=== PATIENT | female | born 1980 | race Caucasian/White ===

== ENCOUNTER 2019-04-12 09:17 | Inpatient (IN) | payer OTHER ==
[~2019-04-12] VITALS: Ht 172.7 cm; Wt 181.4 kg
[~2019-04-12 09:17] MED LIST: AMOX500
[2019-04-12 11:42] LABS: BASOPHILS ABSOLUTE AUTO 0.07 K/mm3 (0.00-0.23); BASOPHILS PERCENT AUTO 0 % (0-2); EOSINOPHILS PERCENT AUTO 0 % (0-6); Hematocrit 31.9 % (33.0-51.0); Hemoglobin 7.7 g/dL (11.5-16.0); IMMATURE GRAN ABSOLUTE AUTO 0.32 K/mm3 (0.00-0.10); IMMATURE GRAN PERCENT AUTO 1 % (0-1); LYMPHOCYTES ABSOLUTE AUTO 2.42 K/mm3 (0.84-5.20); LYMPHOCYTES PERCENT AUTO 8 % (21-46); MONOCYTES ABSOLUTE AUTO 2.61 K/mm3 (0.16-1.47); MONOCYTES PERCENT AUTO 8 % (4-13); Mean Corpuscular HGB 15.5 pg (26.0-34.0); Mean Corpuscular HGB Conc 24.1 g/dL (31.5-36.5); Mean Corpuscular Volume 64 fL (80-100); Mean Platelet Volume 9.2 fL (9.1-12.4); NEUTROPHILS ABSOLUTE AUTO 25.89 K/mm3 (1.96-9.15); NEUTROPHILS PERCENT AUTO 83 % (41-73); NRBC ABSOLUTE 0.06 K/mm3 (0.00-0.02); NRBC Auto 0.2 /100 WBC (0.0-0.2); Platelet Count 446 K/mm3 (150-400); RDW Standard Deviation 46.5 fL (35.1-46.3); Red Blood Cell Count 4.98 M/mm3 (3.80-5.20); White Blood Cell Count 31.31 K/mm3 (4.00-11.30)
[2019-04-12 12:01] LABS: International Normalized Ratio 1.21; Prothrombin Time Results 12.8 Sec (9.7-11.5)
[2019-04-12 12:06] LABS: Alanine Aminotransfer (ALT/SGP 48 U/L (12-78); Albumin/Globulin Ratio 0.7 (0.8-1.8); Alk Phos 116 U/L (50-136); Anion Gap 10 mmol/L (6-16); Aspartate Aminotrans (AST/SGOT 39 U/L (12-37); Bilirubin, Total 1.3 mg/dL (0.1-1.0); Blood Urea Nitrogen 10 mg/dL (8-24); Bun/Creatinine Ratio 13.9 (12.0-20.0); CO2, Blood 23 mmol/L (21-32); Calcium, Blood 8.9 mg/dL (8.5-10.1); Chloride, Blood 99 mmol/L (98-108); Creatinine, Blood 0.72 mg/dL (0.40-1.00); Globulin, Blood 4.2 g/dL (2.2-4.0); Glomerular Filtration Rate >60 (60-); Glucose, Blood 286 mg/dL (70-99); Potassium, Blood 3.9 mmol/L (3.5-5.5); Sodium, Blood 132 mmol/L (136-145); Total Protein, Blood 7.2 g/dL (6.4-8.2)
[2019-04-12 12:43] LABS: Source, Urine Catheter
[2019-04-12 12:52] LABS: Bilirubin, Urine Neg (Neg); Blood, Urine 5+ (Neg); Glucose Qualitative, Urine 2+ (Neg); Ketones, Urine 3+ (Neg); Leukocyte Esterase, Urine 3+ (Neg); Nitrite, Urine Pos (Neg); Protein, Urine 3+ (Neg); Urobilinogen, Urine NORM (Normal); pH, Urine 6.5 (5.0-8.0)
[2019-04-12 13:06] LABS: Appearance, Urine Cloudy (Clear); Color, Urine Yellow (P-Yellow)
[2019-04-12 13:08] LABS: Bacteria Many /hpf; Red Blood Cells, Urine 25-50 /hpf (0-2); Squamous Epithelial Cells Few /hpf (Few); White Blood Cells, Urine 50-100 /hpf (0-5)
[2019-04-12 14:31] LABS: Percent Saturation 4.8 % (15.0-50.0)
--- NOTE | 2019-04-13 03:24 | NUR ---
SUMMARY PT HAD NO ISSUES NOTED. PT CONTINUED TO HAVE ELEVATED PULSE T/O SHIFT. PT HAS HAD DIFFICULTY SLEEPING. PT IS EAGER TO GO HOME. NO FEVERS NOTED. PT CURRENTLY AWAKE RESTING AND IN NO DISTRESS. CALL LIGHT IN REACH
[2019-04-13 05:24] LABS: BASOPHILS ABSOLUTE AUTO 0.08 K/mm3 (0.00-0.23); BASOPHILS PERCENT AUTO 0 % (0-2); EOSINOPHILS ABSOLUTE AUTO 0.02 K/mm3 (0.00-0.68); EOSINOPHILS PERCENT AUTO 0 % (0-6); Hemoglobin 7.3 g/dL (11.5-16.0); IMMATURE GRAN ABSOLUTE AUTO 0.35 K/mm3 (0.00-0.10); IMMATURE GRAN PERCENT AUTO 1 % (0-1); LYMPHOCYTES ABSOLUTE AUTO 2.12 K/mm3 (0.84-5.20); LYMPHOCYTES PERCENT AUTO 8 % (21-46); MONOCYTES ABSOLUTE AUTO 2.29 K/mm3 (0.16-1.47); MONOCYTES PERCENT AUTO 8 % (4-13); Mean Corpuscular HGB 15.5 pg (26.0-34.0); Mean Corpuscular HGB Conc 24.3 g/dL (31.5-36.5); Mean Corpuscular Volume 64 fL (80-100); Mean Platelet Volume 9.8 fL (9.1-12.4); NEUTROPHILS ABSOLUTE AUTO 22.61 K/mm3 (1.96-9.15); NEUTROPHILS PERCENT AUTO 82 % (41-73); Platelet Count 434 K/mm3 (150-400); RDW Coefficient Variation 20.5 % (11.7-14.2); RDW Standard Deviation 45.9 fL (35.1-46.3); Red Blood Cell Count 4.71 M/mm3 (3.80-5.20); White Blood Cell Count 27.47 K/mm3 (4.00-11.30)
[2019-04-13 06:04] LABS: Anion Gap 10 mmol/L (6-16); Blood Urea Nitrogen 14 mg/dL (8-24); Bun/Creatinine Ratio 15.5 (12.0-20.0); CO2, Blood 22 mmol/L (21-32); Calcium, Blood 8.5 mg/dL (8.5-10.1); Chloride, Blood 101 mmol/L (98-108); Glomerular Filtration Rate >60 (60-); Glucose, Blood 257 mg/dL (70-99); Potassium, Blood 3.7 mmol/L (3.5-5.5); Sodium, Blood 133 mmol/L (136-145)
--- NOTE | 2019-04-13 16:03 | NUR ---
SHIFT SUMMARY PT IS A/O X 4 AND HAS NO C/O PAIN. IV FLUIDS/ABO HAVE INFUSED ORDERED WITH NO ISSUE. STOOL SAMPLE IS PENDING BM. PT HAS BEEN UP TO RECLINER SLEEPING ON AND OFF THROUGHOUT THE DAY. LAB RESULTS WERE CALLED TO DR SAUCEDA THIS MORNING AND NO NEW ORDERS WERE GIVEN. PT IS ABLE TO MAKE HER NEEDS KNOWN AND CALLS FOR HELP WHEN NEEDED.
--- NOTE | 2019-04-13 22:38 | NUR ---
CALLED SINGLE WIRE SAW OPERATOR I DID INFORM HER THAT THE SECOND BAG OF IV FLUIDS WAS NOT ADMINISTERED. I DID ALSO INFORM HER THAT THIS PT HAS BEEN RUNNING HYPERTENSIVE AND TACHYCARDIC SINCE ADMIT. SINGLE WIRE SAW OPERATOR INSTRUCTED ME TO HOLD THE IV FLUID AND PASS THE VITALS INFORMATION ALONG TO DAY SHIFT.
[2019-04-14 03:53] LABS: Stool Occult Blood Guaiac 1 Neg (Neg)
--- NOTE | 2019-04-14 05:13 | NUR ---
SHIFT SUMMARY ADMITTED FOR RT SIDE PYELONEPHRITIS/ANEMIA/HYPERGLYCEMIA. FULL CODE. DM2 IS NEW DIAGNOSIS (A1C 10.6). POSITIVE BLOOD CULTURES. A&O X4, INDEPENDENT, RA. STOOL SAMPLE NEGATIVE FOR GUAIAC. LIVES ALONE. IRON IS BEING SUPPLEMENTED. HX: MORBID OBESITY, MENOMETRORRHAGIA (TO BE HANDLED OUTPT). IV FLUIDS HELD THIS SHIFT PT HAS BEEN TACHYCARDIC AND HYPERTENSIVE SINCE ADMIT, CHEMICAL TESTER INFORMED AND ORDERED FLUIDS HELD
--- NOTE | 2019-04-14 16:34 | NUR ---
SHIFT SUMMARY PT IS A/O X 4 AND HAS NO C/O PAIN OR DISCOMFORT. PER PLAN IS FOR PT TO STAY AT LEAST ONE MORE DAY TO MONITOR LABS. IV FLUIDS/ABO INFUSED ORDERED. PT REQUEST HER IV BE MOVED OUT OF HER HAND AND THE CHARGE NURSE WAS SUCCESSFUL IN STARTING A NEW PERIPHERAL IV . PT WAS ASSISTED TO TAKE A SHOWER AND WASH HER HAIR. SHE REPORTS THAT WITH THE NEW BIGGER BED THAT WE SET UP FOR HER LAST MAHAMED SHE WAS ABLE TO SLEEP ALL NIGHT. PT IS VERY PLEASANT AND ALTHOUGH SHE IN ANXIOUS TO GO HOME SHE HAS BEEN VERY THANKFUL FOR HER CARE HERE. PT IS ABLE TO MAKE HER NEEDS KNOWN, SHE CALLS FOR HELP WHEN NEEDED. CALL LIGHT IS IN REACH.
--- NOTE | 2019-04-15 02:18 | NUR ---
38 year old Female with dx of pylonephritis has urine culture growing EColi. continues on rocephin to tx. She has only mild rt flank pain relieved by rest and relatation. Dx with anemia getting daily IV iron x 3 doses. DX with type 2 diabeties on metformin and glipaside. She had cash teller talk to her yesterday. asks to be uninterruppted due to lack of sleep recently.
[2019-04-15 05:06] LABS: BASOPHILS ABSOLUTE AUTO 0.07 K/mm3 (0.00-0.23); BASOPHILS PERCENT AUTO 1 % (0-2); EOSINOPHILS PERCENT AUTO 2 % (0-6); Hematocrit 27.2 % (33.0-51.0); Hemoglobin 6.6 g/dL (11.5-16.0); IMMATURE GRAN ABSOLUTE AUTO 0.21 K/mm3 (0.00-0.10); IMMATURE GRAN PERCENT AUTO 1 % (0-1); LYMPHOCYTES ABSOLUTE AUTO 2.83 K/mm3 (0.84-5.20); LYMPHOCYTES PERCENT AUTO 18 % (21-46); MONOCYTES ABSOLUTE AUTO 1.01 K/mm3 (0.16-1.47); MONOCYTES PERCENT AUTO 7 % (4-13); Mean Corpuscular HGB 15.3 pg (26.0-34.0); Mean Corpuscular HGB Conc 24.3 g/dL (31.5-36.5); Mean Corpuscular Volume 63 fL (80-100); Mean Platelet Volume 9.7 fL (9.1-12.4); NEUTROPHILS ABSOLUTE AUTO 10.93 K/mm3 (1.96-9.15); NEUTROPHILS PERCENT AUTO 71 % (41-73); NRBC ABSOLUTE 0.12 K/mm3 (0.00-0.02); NRBC Auto 0.8 /100 WBC (0.0-0.2); Platelet Count 422 K/mm3 (150-400); RDW Coefficient Variation 21.6 % (11.7-14.2); RDW Standard Deviation 46.2 fL (35.1-46.3); White Blood Cell Count 15.35 K/mm3 (4.00-11.30)
[2019-04-15 05:39] LABS: Anion Gap 8 mmol/L (6-16); Blood Urea Nitrogen 18 mg/dL (8-24); CO2, Blood 25 mmol/L (21-32); Calcium, Blood 8.8 mg/dL (8.5-10.1); Chloride, Blood 101 mmol/L (98-108); Creatinine, Blood 0.86 mg/dL (0.40-1.00); Glomerular Filtration Rate >60 (60-); Glucose, Blood 112 mg/dL (70-99); Potassium, Blood 3.4 mmol/L (3.5-5.5); Sodium, Blood 134 mmol/L (136-145)
--- NOTE | 2019-04-15 06:14 | NUR ---
DR Carrera updated on H & H decreased to 6.6 27.2 > Discussed with PT if she wound allow a blood transfusion. Dr RX type and screen and transfuse 2 units PRBC. PT denies feeing weak or dizzy this AM but felt very weak and lightheaded yesterday. She has recieved 2 of 3 daily iron transfusions.
[2019-04-15] MEDS ORDERED: LOSA50 PO (14:36)
[2019-04-15] MEDS ORDERED: GLIM2 PO (14:36)
[2019-04-15] MEDS ORDERED: METF500 PO (14:37)
[2019-04-15] MEDS ORDERED: FEROSUL325 M1 (14:39)
[2019-04-15] MEDS ORDERED: CEFD300 PO (14:40)
--- NOTE | 2019-04-15 15:33 | NUR ---
DISCHARGE SUMMARY PT D/C HOME, TRANSPORTED BY [facility] TO PRIVATE CAR. PERSCRIPTIONS FAXED TO [facility] ON [address]. DISCHARGED INSTRUCTIONS GONE OVER WITH PT AND PT HAD NO FURTHUR QUESTIONS. SL DISCHARGED.
== END 2019-04-15 15:22 | disposition home or self-care (01) | DRG 872 ==
LOC: ER 09:17 → EDBEDREQ 15:02 → EDBEDREQSVC 15:02 → MEDS 15:03 → ERHOLD 15:03 → MEDS 18:37
PROVIDERS: Hospitalist; Physician Assistant; ADMIT Hospitalist
PROC: 30233N1 Transfusion of Nonautologous Red Blood Cells into Peripheral Vein, Percutaneous Approach (ICD-10-PCS; principal; 2019-04-13)
DX: A41.51 Sepsis due to Escherichia coli [E. coli] (principal); E87.1 Hypo-osmolality and hyponatremia; N10 Acute pyelonephritis; Z68.44 Body mass index [BMI] 60.0-69.9, adult; D50.9 Iron deficiency anemia, unspecified; E11.59 Type 2 diabetes mellitus with other circulatory complications; E11.65 Type 2 diabetes mellitus with hyperglycemia; E66.01 Morbid (severe) obesity due to excess calories; N92.1 Excessive and frequent menstruation with irregular cycle; I10 Essential (primary) hypertension
CPT/HCPCS: 36415; 36430; 80048; 80053; 81001; 82272; 82947; 83036; 83540; 83550; 83605; 85025; 85610; 85730; 86850; 86900; 86901; 86923; 87040; 87077; 87086; 87186; 93005; 93010; 96361; 96365; 96375; 99285-25; A9270; A9270-GY; J0696; J1885; J2405; J2916; J7030; J7050; J7120; P9016

== ENCOUNTER → 2020-05-24 | Outpatient (CLI) | payer OTHER ==
[~2020-05-24] MED LIST changes: +CEFD300 PO; +FEROSUL325 M1; +GLIM2 PO; +LOSA50 PO; +METF500 PO
== END ==
LOC: LAB SHORT 07:25
DX: Z12.4 Encounter for screening for malignant neoplasm of cervix (principal); N93.8 Other specified abnormal uterine and vaginal bleeding; D39.9 Neoplasm of uncertain behavior of female genital organ, unspecified; C53.9 Malignant neoplasm of cervix uteri, unspecified
CPT/HCPCS: 88305; 88341; 88342

== ENCOUNTER → 2021-02-16 | Outpatient (CLI) | payer OTHER | END | disposition home or self-care (01) | LOC: LAB SHORT 17:23 | DX: R82.90 Unspecified abnormal findings in urine (principal) | CPT/HCPCS: 87086 ==

== ENCOUNTER 2021-07-26 01:12 | Emergency (ER) | payer OTHER ==
[~2021-07-26] VITALS: Ht 170.2 cm; Wt 141.1 kg
[2021-07-26 03:32] LABS: BASOPHILS ABSOLUTE AUTO 0.03 K/mm3 (0.00-0.23); BASOPHILS PERCENT AUTO 0 % (0-2); EOSINOPHILS ABSOLUTE AUTO 0.05 K/mm3 (0.00-0.68); EOSINOPHILS PERCENT AUTO 1 % (0-6); Hematocrit 43.9 % (33.0-51.0); IMMATURE GRAN ABSOLUTE AUTO 0.02 K/mm3 (0.00-0.10); IMMATURE GRAN PERCENT AUTO 0 % (0-1); LYMPHOCYTES ABSOLUTE AUTO 0.65 K/mm3 (0.84-5.20); LYMPHOCYTES PERCENT AUTO 9 % (21-46); MONOCYTES ABSOLUTE AUTO 0.25 K/mm3 (0.16-1.47); MONOCYTES PERCENT AUTO 3 % (4-13); Mean Corpuscular HGB 26.2 pg (26.0-34.0); Mean Corpuscular HGB Conc 31.9 g/dL (31.5-36.5); Mean Corpuscular Volume 82 fL (80-100); NEUTROPHILS ABSOLUTE AUTO 6.27 K/mm3 (1.96-9.15); NEUTROPHILS PERCENT AUTO 86 % (41-73); Platelet Count 274 K/mm3 (150-400); RDW Coefficient Variation 16.3 % (11.7-14.2); RDW Standard Deviation 48.6 fL (35.1-46.3); Red Blood Cell Count 5.35 M/mm3 (3.80-5.20); White Blood Cell Count 7.27 K/mm3 (4.00-11.30)
[2021-07-26 03:50] LABS: Albumin, Blood 3.7 g/dL (3.4-5.0); Albumin/Globulin Ratio 0.9 (0.8-1.8); Bilirubin, Total 0.3 mg/dL (0.1-1.0); Bun/Creatinine Ratio 25.4 (12.0-20.0); Calcium, Blood 9.8 mg/dL (8.5-10.1); Creatinine, Blood 0.91 mg/dL (0.40-1.00); Globulin, Blood 4.3 g/dL (2.2-4.0); Potassium, Blood 3.7 mmol/L (3.5-5.5)
== END 2021-07-26 04:17 | disposition home or self-care (01) ==
LOC: ER 01:12
PROVIDERS: Emergency Medicine
DX: N23 Unspecified renal colic (principal); Z79.84 Long term (current) use of oral hypoglycemic drugs; Z79.899 Other long term (current) drug therapy
CPT/HCPCS: 36415; 80053; 83690; 85025; 96374; 96375; 99284-25; J1170; J1885; J2405